=== PATIENT | female | born 1985 | race Caucasian/White ===

== ENCOUNTER 2025-01-19 23:25 | Emergency (ER) | payer SELFPAY ==
[2025-01-20] MEDS ORDERED: Ondansetron PF 4 MG/2 ML Vial ONE (00:04)
[2025-01-20 00:15] LABS: #Basophils 0.07 10x3/uL (0.0-0.2); #Eosinophils 0.12 10x3/uL (0.0-0.5); #Monocytes 0.33 10x3/uL (0.0-1.1); #Neutrophils 3.62 10x3/uL (1.5-8.4); %Basophils 1.1 % (0.0-2.0); %Eosinophils 1.9 % (0.0-6.0); %Lymphocytes 35.4 % (18.0-47.0); %Monocytes 5.1 % (0.0-10.0); %Neutrophils 56.3 % (40.0-75.0); Hematocrit 35.2 % (34.9-44.5); Hemoglobin 11.9 g/dL (12.0-15.5); Mean Corpuscular Hemoglobin 30.0 pg (27.0-33.0); Mean Corpuscular Volume 88.7 fL (81.6-98.3); Platelet Count 390 10x3/uL (150-450); Red Blood Cell (RBC) Count 3.97 10x6/uL (3.90-5.03); White Blood Cell (WBC) Count 6.42 10x3/uL (3.5-10.5)
[2025-01-20 00:28] LABS: BHCG - Serum Negative (NEGATIVE); Pregs Control Background? CLEAR/WHITE (CLR/WHITE); Pregs Control Bar Appear? YES (CONTROL BAR)
[2025-01-20 00:33] LABS: ALT (SGPT) 19 U/L (Less than 34); AST (SGOT) 24 U/L (11-34); Albumin 3.8 g/dL (3.1-4.5); Alkaline Phosphatase 82 U/L (40-110); Anion Gap 15 mmol/L (10-20); BUN (Urea Nitrogen) 9 mg/dL (7.0-18.7); Bilirubin, Total 0.2 mg/dL (0.3-1.2); Calc. Creatinine Clearance 0 mL/min (70-130); Calcium 8.7 mg/dL (7.8-10.44); Carbon Dioxide 21 mmol/L (22-29); Chloride 107 mmol/L (98-107); Globulin 2.9 g/dL (2.4-3.5); Glucose 136 mg/dL (70-105); Potassium 3.9 mmol/L (3.5-5.1); Sodium 139 mmol/L (136-145)
== END 2025-01-20 02:26 | disposition home or self-care (01) ==
LOC: CSHERS 23:25
DX: A08.4 Viral intestinal infection, unspecified (principal); E86.0 Dehydration; R16.0 Hepatomegaly, not elsewhere classified
CPT/HCPCS: 74176; 80053; 84703; 85025; 96374